=== PATIENT | female | born 1950 | race Caucasian/White ===

== ENCOUNTER → 2020-09-03 09:52 | Outpatient (CLI) | payer MEDICARE, OTHER ==
[2020-04-10 10:45] VITALS: BMI 24.7
[~2020-09-03 09:52] MED LIST: CARDIZEM120 MG PO; CARDURA1 MG PO; COREG25 MG PO; FLORINEF 0.1 M0.1 MG PO; IPRAT-ALBUT 0.5-3 ML UPD; LASIX20 MG PO; LASIX40 MG PO; MIDODRINE HCL5 MG PO; NEXIUM40 MG PO; PROZAC10 MG PO; SINGULAIR10 MG PO; SYNTHROID137 MCG PO; VITAMIN D250000 UNIT PO; XOPENEX HFA15 GM INH
== END | disposition home or self-care (01) ==
LOC: D.US 08-20 13:00
PROVIDERS: ATTEND Internal Medicine Nephrology
DX: N18.6 End stage renal disease (principal)

== ENCOUNTER 2020-09-15 05:50 | Day surgery (SDC) | payer MEDICARE, OTHER ==
[~2020-09-15] VITALS: Ht 162.6 cm; Wt 77.1 kg
[2020-09-15 06:30] LABS: BASOPHILS 0.4 % (0-2); EOSINOPHILS 3.8 % (0-7); HEMATOCRIT 41.6 % (36.0-48.0); HEMOGLOBIN 12.7 g/dL (12-16); IMMATURE GRANULOCYTES 0.2 % (0-5); LYMPHOCYTE ABS# 1.16 10x3/uL (1.18-3.74); MCH 31.8 pg (26.0-34.0); MCHC 30.5 g/dL (31.0-37.0); MEAN PLATELET VOLUME 10.5 fL (7.4-10.4); MONOCYTES 7.2 % (2-11); NEUTROPHIL ABS# 2.78 10x3/uL (1.56-6.13); NEUTROPHILS 62.4 % (40-80); PLATELET COUNT 136 10x3/uL (130-400); WBC 4.5 10x3/uL (4.8-10.8)
[2020-09-15 06:35] LABS: CARBON DIOXIDE 29.2 mmol/L (21.0-32.0); CREATININE - SERUM 5.9 mg/dL (0.6-1.3); POTASSIUM - SERUM 5.2 mmol/L (3.5-5.1)
[2020-09-15 06:51] LABS: INR 0.98 (0.85-1.17)
[2020-09-15] MEDS ORDERED: PHOSLO667 MG (08:20)
[2020-09-15] MEDS ORDERED: BUPROPION HCL75 MG PO (08:21)
[2020-09-15 08:39] VITALS: BP 132/81; Ht 162.6 cm; Wt 77.1 kg
--- NOTE | 2020-09-15 14:12 | NUR ---
DC INSTRUCTIONS GIVEN TO PT/SPOUSE. STATE UNDERSTANDING.
--- NOTE | 2020-09-15 14:27 | NUR ---
DISCONNECTED IV FROM HEMOSPLIT PER PROTOCOL USING NS FLUSH AND HEP FLUSH. WILL DC SHORTLY.
--- NOTE | 2020-09-15 15:08 | NUR ---
PT LEFT UNIT VIA WC AT 1437
--- NOTE | 2020-09-24 10:01 | OP ---
PATIENT NAME: JON LAI MEDICAL RECORD: [id number] :52 LOCATION:[facility] ADMISSION DATE: SURGEON: FADY AMEZCUA MD DATE OF OPERATION: 09/15/2020 REFERRING PHYSICIAN: Nichelle White DO PREOPERATIVE DIAGNOSES: End-stage renal disease and dependence on hemodialysis. POSTOPERATIVE DIAGNOSES: End-stage renal disease and dependence on hemodialysis. OPERATION PERFORMED: Implantation of a right forearm loop 4-7 taper Propaten Intering PTFE AV graft between the brachial artery and the basilic vein, i.e., pinky push. ANESTHESIA: Regional nerve block and MAC per [employer]. PREOPERATIVE NOTE: Ms. Lai is a very nice 70-year-old white female patient with end-stage renal disease, on dialysis at this time with a catheter. She has very fat fleshy arms, which are unattractive for access above the antecubital space. Fortunately, she has a good basilic vein and brachial artery there at the antecubital level. I plan to implant a forearm loop AV graft. DESCRIPTION OF PROCEDURE: Under anesthesia in supine position, the patient was prepped and draped in a sterile manner. A transverse incision was made and the vessels, brachial artery, and basilic vein were dissected and controlled as needed with Silastic loops. The artery was occluded and a small arteriotomy made with 11 blade and micro Ocampo scissors. I chose a tapered 4-7 PTFE Intering graft and the arterial end was beveled and anastomosed end-to-side to the artery with running 6-0 Prolene. The artery had been flushed proximally and distally with heparinized saline and when the anastomosis was completed, there was good backbleeding and then the entire graft and artery was again flushed with heparinized saline. A counterincision was made distally on the forearm near the wrist and the graft was placed in a subcutaneous looping tunnel and brought back to the primary incision where the graft was shortened and bevelled and the vein occluded and opened, flushed with heparinized saline and an end-to-side, end of graft to side of vein anastomosis was performed with running 6-0 Prolene. When completed and all of the occluding loops and clamps were released, excellent flow developed immediately within the new graft. Suture lines were hemostatic. The wound was irrigated with saline and then approximated with interrupted inverted 3-0 Vicryl and running intracuticular 4-0 Stratafix and Dermabond glue. It was dressed with Maxorb AG, Tegaderm, Cavilon skin prep and the patient awakened from her anesthetic and taken to the recovery room. There was little blood loss during the procedure. Sponges, instruments and needles were accounted for. No drain was used and no surgical specimen was submitted for histopathology. Note, in future, the patient may develop a nice upper arm basilic vein and be converted to a brachial to translocated basilic vein AV fistula depending on the location of the vein and incision placement. If that is desired it is important to avoid placing stents in the basilic vein above the antecubital level at some OPERATIVE REPORT [id number] JON LAI in the future. TRANSINT:[id number] Voice Confirmation ID: [id number] DOCUMENT ID: [id number] FADY AMEZCUA MD at 1001 CC: NICHELLE WHITE DO [id number] DICTATION DATE: 09/23/20 1547 RECORD LIBRARIAN: 09/24/20 0023 [facility] 09/15/20 [facility] [address] [place] [address]
== END 2020-09-15 14:37 | disposition home or self-care (01) ==
LOC: D.OPS 05:50
PROVIDERS: Surgery; ATTEND Internal Medicine
DX: N18.6 End stage renal disease (principal); Z99.2 Dependence on renal dialysis; I51.9 Heart disease, unspecified; J45.909 Unspecified asthma, uncomplicated; E07.9 Disorder of thyroid, unspecified